=== PATIENT | male | born 1965 | race Caucasian/White ===

== ENCOUNTER 2021-02-03 02:21 | Day surgery (SDC) | payer BC, SELFPAY ==
[2021-01-31 15:36] VITALS: BMI 30.2
--- NOTE | 2021-01-31 15:52 | PC.NURSE ---
Report to the Outpatient Waiting Room, entrance under the green pavilion located off [facility], at time __0800 on date _02/03/21 . OR Time: ___999 . - You and your visitor will be asked a series of questions to screen for COVID 19 for your protection. - A mask is required within the hospital. - Only one visitor is allowed at this time. Patient visitors will be guided where to wait when not with patient. Preoperative COVID Testing Requirements: No COVID Test needed if: (proof is required; if not received patient will have Rapid Test prior to entry) - Patient has received COVID Vaccine at least 14 days prior to procedure date or - Patient has positive COVID test result within last 90 days of surgery date. COVID Test needed if above criteria is not met If not COVID vaccinated a COVID test must be conducted within 72 hours of surgery and patient is asked to isolate self from time of testing until procedure. You will go to the [facility] for your COVID testing. The [facility] is located at the corner of [address] [facility]. You will only be called if COVID results are positive and your surgeon may reschedule your elective surgery date. Patients may have clear liquids (water, carbonated beverages, clear teas, apple juice) until 3 hours prior to surgery with a maximum of 20 ounces. - No food from midnight until time of surgery - Infants may have breast milk until 4 hours before surgery, infant formula 6 hours prior to surgery. - Children will be allowed to drink immediately following surgery. If applicable, please bring a bottle or sippy cup to assist with drinking. Juice, water, soda, and popsicles are readily available. For infants on formula, please bring formula the day of surgery. Pacifiers are allowed. Take the following medications with a SIP of water the morning of surgery: ___EYE DROPS Medications to discontinue per physician ALL VITAMINS/SUPPLEMENTS 3 DAYS PRE-OP Date to take last dose Please no make-up, nail palauan, hairspray, perfume, deodorant, or body powder the day of surgery. No jewelry (including any body piercings) or valuables the day of surgery, leave them at home. Please take a shower or bath the night before, or the morning of, surgery with an antibacterial soap. Wear comfortable, loose fitting clothing. Children are encouraged to wear pajamas. - Jewelry must be removed prior to entering the operating room. Rings and piercings that are not removed may be cut off. - The hospital will not accept responsibility for valuables. - Please leave all valuables, including medications, at home the day of surgery. If you are going home after surgery, a licensed driver lifter of sanitation truck must drive you home. - NO public transportation without another adult. - We recommend that an adult stay with you for 24 hours following discharge. - We also recommend that you do not drive, make important decision, drink alcoholic beverages, or take any drugs that were not prescribed by your health care provider for at least 24 hours after your discharge time. For Pediatric surgeries, we recommend two adults accompany the child home (only one inside the building at this time). Follow any additional instructions given to you from your surgeon. Telephone instructions given to PATIENT and asked if any additional questions and then verbalized understanding. Patient advised to call surgeon office or pre surgery nurse liaison [phone] if any additional questions.
--- NOTE | 2021-02-03 07:13 | WPDHPUPDATE1 ---
History and Physical Update Update Date/Time: 02/03/21 07:13 History and Physical has been reviewed, including an updated exam of the patient. There are NO changes in the patient's condition. Risks, benefits, and alternatives have been discussed and questions answered. Patient agrees to proceed with procedure.
--- NOTE | 2021-02-03 08:30 | WPDANESEPPF ---
Anes - Initial Pre Proc Eval Procedure: Operation Date: 02/03/21 10:00 Proposed Procedures p Left Partial Palmar Fasciectomy - Ger Cunningham MD Date/Time: 02/03/21 08:30 Surgeon: Ger Cunningham MD Pre Op Diagnosis: dupuytrens contracture left palmar small finger Patient Data Age: 55 Gender: M Height: 1.88 m Weight: 107 kg Allergies Allergy/AdvReac Type Severity Reaction Status Date / Time No Known Allergies Allergy Verified 02/03/21 08:05 Home Medications Medication Instructions Recorded Confirmed Type prednisolone sodium phosphate 1 % 1 drop RIGHT EYE DAILY ml 06/25/19 01/31/21 History eye drops lisinopril 10 mg PO QAM 01/31/21 01/31/21 History multivitamin [Daily Multiple] 1 tablet PO DAILY 01/31/21 01/31/21 History Patient hx anesthesia problems: none Family hx anesthesia problems: none Results Review: All pre-operative results and documents have been reviewed as part of the pre-operative evaluation. [facility] Past Medical History Medical History (Updated 02/03/21 @ 08:30 by Marcio Rojas MD) Dupuytren contracture Hypertension ZINA (obstructive sleep apnea) Surgical History Surgical History (Updated 02/03/21 @ 08:30 by Marcio Rojas MD) Cataract extraction status of eye H/O colonoscopy Family History Family History Father Diabetes mellitus Hypertension Grandparent Diabetes mellitus Hypertension Social History Social History Smoking status: Never smoker Second hand tobacco smoke exposure: No Alcohol intake: current Drinks per week: 2 Substance use: never Substance use type: does not use Living arrangements: alone Spiritual care concerns: No Anes - Eval Final PreProcedure Day of Procedure 02/03/21 08:30 Patient weight: obese Heart: regular rate and rhythm Lungs: clear to auscultation Airway: Mallampati scale class II Neurological: alert and oriented Last oral intake: >/= 8 hours ASA classification: III Emergent: no Anesthetic plan: proceed Anesthesia type and monitoring: general GIVS and standard monitoring Results Review: All pre-operative results and documents have been reviewed as part of the pre-operative evaluation. Informed Consent: The patient's anesthetic plan and its attendant risks and benefits were discussed with the patient/family/POA. Questions were solicited and answers provided to the satisfaction of the patient/family/POA.
[2021-02-03 08:47] VITALS: BP 146/87; PULSE 64; TEMP 36.8; O2SAT 99
[2021-02-03] MEDS: LACTATED RINGERS 1,000 ML 30 ML IV CONT (08:50)
[2021-02-03] MEDS: LIDO 1%/EPINEPHRINE/PF 1:200,000 30 ML VIAL 8 ML XX (09:55)
[2021-02-03 11:07] VITALS: BP 138/67; PULSE 77; RESP 16; TEMP 36.2; O2SAT 95
[2021-02-03 11:22] VITALS: BP 129/84; PULSE 56; RESP 16; O2SAT 95
--- NOTE | 2021-02-03 11:23 | W.PM.PROC2 ---
Procedure Note - Detailed Date of Procedure 02/03/21 Pre-op Diagnosis dupuytrens contracture left palmar small finger Post-op Diagnosis same Procedure Performed Left partial palmar fasciectomy Surgeon Ger Cunningham MD Sign Manufacturer Adriana Shetty Anesthesia MAC Description of Procedure The contracted area on the patient's hand was marked as he waited in preop. He was then taken to the operating room where he was placed supine on the operating table. A time-out was held and confirmed.The extremity was prepped and draped in usual fashion.He was given IV sedation the site was carefully marked for a couple of incisions.These were eventually all connected.The area was infiltrated with 1% lidocaine with epinephrine. The transverse palmar incision was made to access the palmar cords which were primarily to the 5th finger but also to the 4th. All of that was removed. The neurovascular bundles were carefully protected throughout. The midline volar incision on the small finger was then opened and the skin flaps elevated. The large palmar mass was removed through both incisions. This completely relieved the flexion deformity. It also appeared to relieved pressure on the ulnar digital nerve from this mass that was not a spiral cord. This had been causing the patient numbness on the ulnar aspect we believe for several weeks continuously pins the wound was closed with 2 Z-plasties on the palmar aspect of the small finger. All tissue appeared to be viable the usual bandage was applied the tourniquet was released and he is discharged from the operating room stable condition he has instructions in wound care and follow-up and a prescription for hydrocodone 5/325 7. Tourniquet Time 41 Drains No Packing No Pathology none sent Complications No immediate complications Condition stable Disposition same day
[2021-02-03 11:37] VITALS: BP 128/87; PULSE 52; RESP 16; O2SAT 95
[2021-02-03 12:00] VITALS: BP 128/84; PULSE 57; RESP 16; O2SAT 95
== END 2021-02-03 12:22 | disposition home or self-care (01) ==
PROVIDERS: PCP Family Medicine; Visit Provider Plastic Surgery
PROC: (CPT 26045; principal; 2021-02-03 10:00)
DX: M72.0 Palmar fascial fibromatosis [Dupuytren] (principal); I10 Essential (primary) hypertension; G47.33 Obstructive sleep apnea (adult) (pediatric); E66.9 Obesity, unspecified; Z68.32 Body mass index [BMI] 32.0-32.9, adult
CPT/HCPCS: 26123; A9270; J1100; J1170; J2250; J2405; J2704; J3010; J7120

== ENCOUNTER 2023-04-03 00:16 | Day surgery (SDC) | payer BC, SELFPAY ==
[2023-03-09 13:57] VITALS: BMI 30.8
[2023-04-03 07:42] VITALS: BP 168/86; PULSE 77; RESP 18; TEMP 36.4; O2SAT 97; BMI 34.2
[2023-04-03] MEDS: LACTATED RINGERS 1,000 ML 150 ML IV CONT (08:03)
--- NOTE | 2023-04-03 08:51 | PM.HPGS ---
History of Present Illness History of Present Illness Consent: Risks, benefits, and alternatives have been discussed and questions answered. Patient agrees to proceed with procedure. Chief complaint: hx colon polyps Narrative: Gary Perez III is a 57 year old male with colon polyp in 2018 Review of Systems Constitutional: Constitutional: Denies headache(s) and Denies weakness Eyes: Eyes: Denies blurry vision ENT: Reports Normal hearing present, Denies headache(s) and Denies neck pain Cardiovascular: Cardiovascular: Denies chest pain and Denies dyspnea Respiratory: Respiratory: Denies dyspnea Gastrointestinal: Gastrointestinal: Reports no additional gastrointestinal complaints Genitourinary: Genitourinary: Denies dysuria Musculoskeletal: Musculoskeletal: Denies neck pain Integumentary/Breasts: Skin/Breast: Denies dry skin Neurologic: Reports Normal hearing present, Denies headache(s) and Denies weakness Psychiatric: Psychiatric: Denies anxiety Endocrine: Endocrine: Denies change in body appearance Hematologic/Lymphatic: Hematologic/Lymphatic: Denies easy bleeding Allergic/Immunologic: Allergic/Immunologic: Denies urticaria PMF Past Medical History Medical History (Updated 04/03/23 @ 08:51 by Nader Buckley MD) Colon polyp Dupuytren contracture Hypertension ZINA (obstructive sleep apnea) Surgical History Surgical History Cataract extraction status of eye H/O colonoscopy Family History Family History Father Diabetes mellitus Hypertension Grandparent Diabetes mellitus Hypertension Social History Social History Smoking status: Never smoker Second hand tobacco smoke exposure: No Alcohol intake: current Drinks per week: 2 Substance use: never Substance use type: does not use Lack of Transportation: No Lack of Food: Never True Current Housing: I Have Housing Concerned About Future Housing: No Difficulty Paying Gas/Electric Bills: No Difficulty Paying for Meds: No Currently Unemployed: No Education: Bachelor's Degree Difficulty w/ Childcare or Family Care: No Living arrangements: with family Spiritual care concerns: No Meds Home Medications and Allergies Home Medications Medication Instructions Recorded Confirmed Type multivitamin 1 tablet PO DAILY 01/31/21 04/03/23 History lisinopril 10 mg tablet 10 mg PO QAM #90 tabs 11/01/22 04/03/23 Rx Allergies Allergy/AdvReac Type Severity Reaction Status Date / Time No Known Allergies Allergy Verified 04/03/23 07:49 Vital Signs Vital Signs - 24 hr 04/03/23 07:42 Temperature 97.6 F Pulse Rate 77 Respiratory Rate 18 Blood Pressure 168/86 H Pulse Oximetry 97 Oxygen Delivery Room Air Exam Const: General: comfortable and no acute distress HENMT: Face/Nose/Sinus: Normal nares present Eyes: General: appearance normal, both eyes and all related structures Neck: Neck: no JVD Resp: Auscultation: clear to auscultation bilaterally Cardio: Rate: regular rate Rhythm: regular rhythm GI: Inspection: non-distended GI Palp: Yes Soft to palpation Skin: General skin exam: normal color Neuro: General: gait normal Speech: normal speech Extrem: General: normal to inspection Psych: Mental Status: mental status grossly normal Assessment and Plan Assessment and plan (1) Colon polyp: Code(s): K63.5 - Polyp of colon Status: Acute Assessment and Plan: colonoscopy
[2023-04-03 09:12] VITALS: BP 140/76; PULSE 82; RESP 32; O2SAT 95
[2023-04-03 09:22] VITALS: BP 130/85; PULSE 81; RESP 16; O2SAT 94
[2023-04-03 09:32] VITALS: BP 140/91; PULSE 66; RESP 17; O2SAT 96
--- NOTE | 2023-04-13 15:25 | WPDANESEPPF ---
Anes - Initial Pre Proc Eval Procedure: Operation Date: 04/03/23 09:00 Proposed Procedures p Colonoscopy - Nader Buckley MD Date/Time: 04/13/23 15:25 Surgeon: Nader Buckley MD Pre Op Diagnosis: hx colon polyps Patient Data Age: 57 Gender: M Height: 1.88 m Weight: 120.8 kg Last Vital Signs Temp 97.6 F 04/03/23 07:42 Pulse 66 04/03/23 09:32 Resp 17 04/03/23 09:32 BP 140/91 H 04/03/23 09:32 Pulse Ox 96 04/03/23 09:32 O2 Del Method Room Air 04/03/23 09:32 Allergies Allergy/AdvReac Type Severity Reaction Status Date / Time No Known Allergies Allergy Verified 04/03/23 07:49 Home Medications Medication Instructions Recorded Confirmed Type multivitamin 1 tablet PO DAILY 01/31/21 04/03/23 History lisinopril 10 mg tablet 10 mg PO QAM #90 tabs 11/01/22 04/03/23 Rx Patient hx anesthesia problems: none Family hx anesthesia problems: none Results Review: All pre-operative results and documents have been reviewed as part of the pre-operative evaluation. [facility] Past Medical History Medical History (Updated 04/03/23 @ 08:51 by Nader Buckley MD) Colon polyp Dupuytren contracture Hypertension ZINA (obstructive sleep apnea) Surgical History Surgical History Cataract extraction status of eye H/O colonoscopy Family History Family History Father Diabetes mellitus Hypertension Grandparent Diabetes mellitus Hypertension Social History Social History Smoking status: Never smoker Second hand tobacco smoke exposure: No Alcohol intake: current Drinks per week: 2 Substance use: never Substance use type: does not use Lack of Transportation: No Lack of Food: Never True Current Housing: I Have Housing Concerned About Future Housing: No Difficulty Paying Gas/Electric Bills: No Difficulty Paying for Meds: No Currently Unemployed: No Education: Bachelor's Degree Difficulty w/ Childcare or Family Care: No Living arrangements: with family Spiritual care concerns: No Anes - Eval Final PreProcedure Day of Procedure 04/13/23 15:25 Patient weight: obese Heart: regular rate and rhythm Lungs: clear to auscultation Airway: Mallampati scale class III Neurological: alert and oriented Last oral intake: >/= 8 hours ASA classification: III Emergent: no Anesthetic plan: proceed Anesthesia type and monitoring: general GIVS and standard monitoring Results Review: All pre-operative results and documents have been reviewed as part of the pre-operative evaluation. Informed Consent: The patient's anesthetic plan and its attendant risks and benefits were discussed with the patient/family/POA. Questions were solicited and answers provided to the satisfaction of the patient/family/POA.
== END 2023-04-03 12:28 | disposition home or self-care (01) ==
PROVIDERS: PCP Family Medicine; Visit Provider Internal Medicine Gastroenterology
PROC: 0DJD8ZZ Inspection of Lower Intestinal Tract, Via Natural or Artificial Opening Endoscopic (ICD-10-PCS; CPT 45378; principal; 2023-04-03 09:00)
DX: Z12.11 Encounter for screening for malignant neoplasm of colon (principal); D12.2 Benign neoplasm of ascending colon; K57.30 Diverticulosis of large intestine without perforation or abscess without bleeding; K64.8 Other hemorrhoids; I10 Essential (primary) hypertension; G47.33 Obstructive sleep apnea (adult) (pediatric)
CPT/HCPCS: 45385; 88305; J2704; J7120

== ENCOUNTER 2024-02-21 10:39 | Outpatient (RCR) | payer BC, SELFPAY | END 2024-05-21 23:59 | disposition home or self-care (01) | LOC: ANHDMC 10:39 | PROVIDERS: PCP Family Medicine; Visit Provider Student in an Organized Health Care Education/Training Program | DX: E11.9 Type 2 diabetes mellitus without complications (principal); Z71.89 Other specified counseling | CPT/HCPCS: G0108 ==